=== PATIENT | female | born 1985 | race Caucasian/White ===

== ENCOUNTER 2021-10-08 01:37 | Outpatient (CLI) | payer OTHER | END 2021-10-08 01:38 | disposition critical access hospital (66) | LOC: EMS 01:37 → EDBD 01:37 → EMS 01:38 | DX: S01.21XA Laceration without foreign body of nose, initial encounter (principal); R22.0 Localized swelling, mass and lump, head; Y04.2XXA Assault by strike against or bumped into by another person, initial encounter; Y92.009 Unspecified place in unspecified non-institutional (private) residence as the place of occurrence of the external cause | CPT/HCPCS: A0425; A0429 ==

== ENCOUNTER 2021-10-08 01:54 | Emergency (ER) | payer OTHER ==
[2021-10-08] MEDS ORDERED: oxyCODONE 5 MG TABLET PO STA (02:20)
[2021-10-08] MEDS ORDERED: ACETAMINOPHEN 325 MG TABLET PO STA ×2 (02:21→07:12)
[2021-10-08] MEDS ORDERED: ALPRAZolam 0.25 MG TABLET PO STA (02:21)
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
[2021-10-08] MEDS ORDERED: HYDROmorphone 1 MG/ML CARPUJECT IM STA (03:39)
[2021-10-08] MEDS ORDERED: KETOROLAC 30 MG/ML VIAL IM STA (07:13)
[2021-10-08] MEDS ORDERED: MIDAZOLAM 10 MG/5 ML UDC PO STA (07:16)
[2021-10-08] MEDS ORDERED: SODIUM CHLORIDE 0.9% 1,000 ML IV STA (07:18)
[2021-10-08] MEDS ORDERED: LORazepam 2 MG/ML VIAL IVP STA (07:18)
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
[2021-10-08 08:09] VITALS: BP 136/68
== END 2021-10-08 09:49 | disposition home or self-care (01) ==
LOC: EDBD → ED 01:54 → EDBD 01:54 → ED 09:49
DX: S02.2XXA Fracture of nasal bones, initial encounter for closed fracture (principal); S02.40DA Maxillary fracture, left side, initial encounter for closed fracture; Y04.0XXA Assault by unarmed brawl or fight, initial encounter
CPT/HCPCS: 70450; 70486; 93005; 96372; 99284; A9270; J1170